=== PATIENT | male | born 1965 | race Caucasian/White ===

== ENCOUNTER 2023-02-06 14:05 | Outpatient (CLI) | payer OTHER, SELFPAY ==
--- NOTE | 2023-02-06 14:00 | ECG_ITS ---
Measurements Intervals [place] Rate: 59 P: 40 SD: 179 QRS: -13 QRSD: 109 T: 32 QT: 389 QTc: 388 Interpretive Statements SINUS BRADYCARDIA DELAYED PRECORDIAL R/S TRANSITION BASELINE ARTIFACT- I, III, AVL BORDERLINE ECG NO PREVIOUS ECG AVAILABLE FOR COMPARISON Electronically Signed On 02-06-2023 14:54:17 CDT by Je Lemus D.O.
== END 2023-02-06 14:06 | disposition home or self-care (01) ==
LOC: ANHSURGERY 14:13
PROVIDERS: PCP Nurse Practitioner Family; Visit Provider Otolaryngology
DX: I10 Essential (primary) hypertension (principal); Z01.818 Encounter for other preprocedural examination
CPT/HCPCS: 93005

== ENCOUNTER 2023-02-14 01:21 | Day surgery (SDC) | payer OTHER, SELFPAY ==
[2023-02-06 13:20] VITALS: BMI 27.6
--- NOTE | 2023-02-06 13:25 | SUR.PREOP ---
Report to the Outpatient Waiting Room, entrance under the green pavilion located off [facility], at time 0730 on date 02/14/23. Planned Procedure Time: 09. Time changes happen often and if your time is changed the preop area will call you the afternoon before. - You and your visitor will be asked to self-screen and do not enter if you have any COVID symptoms. - Only one visitor is requested with a max of two and NO children visitors are allowed at this time. - The patient visitor may be requested to leave or wait in car when not with patient due to distancing restrictions. - A mask is optional within the hospital at this time. Patients may have clear liquids (water, carbonated beverages, clear teas, apple juice) until 3 hours prior to surgery with a maximum of 20 ounces. - No food from midnight until time of surgery - Infants may have breast milk until 4 hours before surgery, formula 6 hours prior to surgery. - Children will be allowed to drink immediately following surgery. If applicable, please bring a bottle or sippy cup to assist with drinking. Juice, water, soda, and popsicles are readily available. For infants on formula, please bring formula the day of surgery. Pacifiers are allowed. Take the following medications with a SIP of water the morning of surgery: N/A DO NOT STOP ANY OF YOUR OTHER PRESCRIPTION MEDICATIONS PRIOR TO SURGERY ?EXCEPT THE FOLLOWING Medications to discontinue per physician HOLD LISINOPRIL MORNING OF PROCEDURE Date to take last dose Please no make-up, nail lao, hairspray, perfume, deodorant, or body powder the day of surgery. No jewelry (including any body piercings) or valuables the day of surgery, leave them at home. Please take a shower or bath the night before, or the morning of, surgery with an antibacterial soap. Wear comfortable, loose fitting clothing. Children are encouraged to wear pajamas. - Jewelry must be removed prior to entering the operating room. Rings and piercings that are not removed may be cut off. - The hospital will not accept responsibility for valuables. - Please leave all valuables, including medications, at home the day of surgery. If you are going home after surgery, a licensed [place] driver must drive you home. - NO public transportation without another adult if you receive anesthesia. - We recommend that an adult stay with you for 24 hours following discharge. - We also recommend that you do not drive, make important decision, drink alcoholic beverages, or take any drugs that were not prescribed by your health care provider for at least 24 hours after your discharge time. For Pediatric surgeries, we recommend two adults accompany the child home. Follow any additional instructions given to you from your surgeon. If you or anyone in your household have experienced Covid symptoms in the past week, please notify your surgeon or the nurse liaison at the phone number below for possible testing. Telephone instructions given to _PATIENT_and asked if any additional questions and then verbalized understanding. Patient advised to call surgeon office or pre surgery nurse liaison [phone] if any additional questions.
--- NOTE | 2023-02-13 15:15 | P.PNAN_ITS ---
Anes - Initial Pre Proc Eval Procedure: Operation Date: 02/14/23 09:30 Proposed Procedures p Tonsillectomy - Simone Ramos MD Date/Time: 02/13/23 15:15 Surgeon: Simone Ramos MD Pre Op Diagnosis: peritonsillar abscess Patient Data Age: 57 Gender: M Height: 1.75 m Weight: 84.82 kg Allergies Allergy/AdvReac Type Severity Reaction Status Date / Time No Known Allergies Allergy Verified 02/14/23 08:01 Home Medications Medication Instructions Recorded Confirmed Type lisinopril 10 mg tablet 10 mg PO DAILY 12/29/22 02/14/23 History Patient hx anesthesia problems: none Family hx anesthesia problems: none Results Review: All pre-operative results and documents have been reviewed as part of the pre- operative evaluation. [facility] Past Medical History Medical History (Updated 02/13/23 @ 15:15 by Blair Frias MD) HTN (hypertension) Overweight (BMI 25.0-29.9) Peritonsillar abscess Recurrent tonsillitis Family History Family History (Updated 12/29/22 @ 11:51 by CAROL Corrales) Father Hypertension Mother Hypertension Social History Social History (Updated 12/29/22 @ 11:51 by CAROL Corrales) Smoking status: Never smoker Alcohol intake: current Drinks per week: 10 Substance use: never Substance use type: does not use Lack of Transportation: No Lack of Food: Never True Current Housing: I Have Housing Concerned About Future Housing: No Difficulty Paying Gas/Electric Bills: No Difficulty Paying for Meds: No Currently Unemployed: No Education: Trade/Vocational Certificate Difficulty w/ Childcare or Family Care: No Living arrangements: with family Anes - Eval Final PreProcedure Day of Procedure 02/13/23 15:15 Patient weight: overweight Heart: regular rate and rhythm Lungs: clear to auscultation and normal air movement Airway: Mallampati scale class II Neurological: alert and oriented Last oral intake: >/= 8 hours ASA classification: II Emergent: no Anesthetic plan: proceed Anesthesia type and monitoring: general ETT Results Review: All pre-operative results and documents have been reviewed as part of the pre- operative evaluation. Informed Consent: The patient's anesthetic plan and its attendant risks and benefits were discussed with the patient/family/POA. Questions were solicited and answers provided to the satisfaction of the patient/family/POA.
--- NOTE | 2023-02-13 18:11 | PM.IMHP ---
H&P: HPI History of Present Illness Date/Time: 02/13/23 18:11 Chief Complaint: Recurrent peritonsillar abscesses recurrent tonsillitis Narrative: planned procedure Review of Systems Review of Systems: All systems reviewed & are unremarkable except as noted in HPI and below PMFSH Past Medical History Medical History (Updated 02/13/23 @ 15:15 by Blair Frias MD) HTN (hypertension) Overweight (BMI 25.0-29.9) Peritonsillar abscess Recurrent tonsillitis Family History Family History (Updated 12/29/22 @ 11:51 by CAROL Corrales) Father Hypertension Mother Hypertension Social History Social History (Updated 12/29/22 @ 11:51 by CAROL Corrales) Smoking status: Never smoker Alcohol intake: current Drinks per week: 10 Substance use: never Substance use type: does not use Lack of Transportation: No Lack of Food: Never True Current Housing: I Have Housing Concerned About Future Housing: No Difficulty Paying Gas/Electric Bills: No Difficulty Paying for Meds: No Currently Unemployed: No Education: Trade/Vocational Certificate Difficulty w/ Childcare or Family Care: No Living arrangements: with family Meds Home Medications and Allergies Home Medications Medication Instructions Recorded Confirmed Type lisinopril 10 mg tablet 10 mg PO DAILY 12/29/22 02/06/23 History Allergies Allergy/AdvReac Type Severity Reaction Status Date / Time No Known Allergies Allergy Unverified 12/29/22 11:43 Exam Narrative: large tonsils Assessment and Plan Assessment and plan (1) Recurrent tonsillitis: Code(s): J03.91 - Acute recurrent tonsillitis, unspecified Status: Acute Assessment and Plan: plan or tonsillectomy risks discussed including significant chance postoperative bleeding 3-5% damage to surrounding structures postoperative infection bleeding pain need for further procedures failure to resolve symptoms need for time off working for time off school damage to any structure above the clavicles damage to any structure during induction and remains of anesthesia. (2) Peritonsillar abscess: Code(s): J36 - Peritonsillar abscess Status: Acute
[2023-02-14] VITALS (10 sets, daily range): BP systolic 131–165; BP diastolic 79–94; PULSE 55–73; RESP 12–20; TEMP 36.6–36.7; O2SAT 94–100; BMI 27.3
--- NOTE | 2023-02-14 07:21 | WPDHPUPDATE1 ---
History and Physical Update Update Date/Time: 02/14/23 07:21 History and Physical has been reviewed, including an updated exam of the patient. There are NO changes in the patient's condition. Risks, benefits, and alternatives have been discussed and questions answered. Patient agrees to proceed with procedure.
[2023-02-14] MEDS: LACTATED RINGERS 1,000 ML 30 ML IV CONT ×3 (07:50→11:10)
[2023-02-14] MEDS: ACETAMINOPHEN 500 MG TABLET 1000 MG PO (07:57)
[2023-02-14] MEDS: OXYMETAZOLINE HCL 0.05% NAS 15 ML BTL (*BKC) 1 SPRAY XX (09:54)
--- NOTE | 2023-02-14 10:56 | P.OP_ITS ---
Procedure Note - Detailed Date of Procedure 02/14/23 Pre-op Diagnosis peritonsillar abscessTonsillitis chronic tonsillitis Post-op Diagnosis Same Procedure Performed tonsillectomy Surgeon Simone Ramos MD Anesthesia General Indications see above Findings excess bleeding total about 10 cc. Severely scarred in tonsils right greater than left in size Description of Procedure patient identified consent verified. Patient brought operating room. Time-out performed. General anesthesia induced. Endotracheal tube secured. Patient prepped draped position. Procedure confirmed. Second time-out performed. Tons illectomy performed with Bovie electrocautery at a setting of 10 and 12. Was a bilateral procedure. McIvor mouth gag inserted tonsil grabbed dissected in extracapsular plane any bleeding was controlled with Bovie suction electrocautery setting of 12 in 15. In between the tonsils the McIvor mouth gag was lowered to allow blood flow to return to the tongue. Once the final tonsillectomy was performed the McIvor mouth gag was lowered again for 30 seconds and reopened to reveal no further bleeding. The patient tolerated the procedure well. There were no obvious complications. Care the patient given Anesthesiology. Total blood loss about 10 cc. I performed all dictated portions of the procedure. Patient taken to PACU. Estimated Blood Loss 10 Drains No Packing No Pathology Yes Complications No immediate complications Condition Stable Disposition PACU [facility] Billing Surgery - Charge Forward: Surgery Billing
[2023-02-14] MEDS: fentaNYL CITRATE INJ (*CRX) 100 MCG/2 ML VIAL 25 MCG IV PUSH ×3 (11:06→11:12)
== END 2023-02-14 12:25 | disposition home or self-care (01) ==
PROVIDERS: PCP Nurse Practitioner Family; Visit Provider Otolaryngology
PROC: (CPT 42826; principal; 2023-02-14 09:30)
DX: J36 Peritonsillar abscess (principal); I10 Essential (primary) hypertension
CPT/HCPCS: 42826; 88300; 88304; 93005; A9270; J0330; J1100; J2250; J2405; J2704; J3010; J7120